=== PATIENT | female | born 1990 | race Caucasian/White ===

== ENCOUNTER 2019-11-22 23:13 | Inpatient (IN) | payer OTHER ==
[~2019-11-22] VITALS: Ht 165.1 cm; Wt 87.7 kg
[~2019-11-22 23:13] MED LIST: CEFD300C37 PO
[2019-11-22 23:15] VITALS: BP 131/70
[2019-11-22] MEDS ORDERED: OXYTOCIN 30U/ 0.9% NaCL 500ML 500 ML IV ONE (23:24)
[2019-11-22] MEDS ORDERED: D5%-LACTATED RINGERS 1,000 ML IV SCH (23:24)
[2019-11-22] MEDS ORDERED: FENTANYL PF 100 MCG/2ML IV PRN (23:30)
[2019-11-22] MEDS ORDERED: TERBUTALINE 1 MG/ML, 1ML SQ PRN (23:30)
[2019-11-22] MEDS ORDERED: TERBUTALINE 1 MG/ML, 1ML IVPush PRN (23:30)
[2019-11-22] MEDS ORDERED: FENTANYL PF 100 MCG/2ML IVPush PRN (23:30)
[2019-11-22] MEDS ORDERED: CALCIUM CARBONATE 500 MG TAB.CHEW PO PRN (23:30)
[2019-11-22] MEDS ORDERED: ONDANSETRON 2MG/ML, 2ML IVPush PRN (23:30)
[2019-11-22 23:44] LABS: BASOPHILS # (AUTO) 0.03 x10^3/uL (0-0.1); BASOPHILS % (AUTO) 0 % (0-1); EOSINOPHILS # (AUTO) 0.05 x10^3/uL (0-0.4); EOSINOPHILS % (AUTO) 0 % (1-7); LYMPHOCYTES # (AUTO) 1.59 x10^3/uL (1-3.4); LYMPHOCYTES % (AUTO) 15 % (22-44); MD NO; MEAN CORPUSCULAR HEMOGLOBIN 31.4 pg (27.0-34.8); MEAN CORPUSCULAR HGB CONC 34.1 g/dL (32.4-35.8); MEAN CORPUSCULAR VOLUME 92.1 fL (80-100); MONOCYTES # (AUTO) 0.72 x10^3/uL (0.2-0.8); MONOCYTES % (AUTO) 7 % (2-9); NEUTROPHILS % (AUTO) 78 % (42-75); PLATELET COUNT 154 x10^3/uL (130-400); RED BLOOD COUNT 4.15 x10^6/uL (3.82-5.3); RED CELL DISTRIBUTION WIDTH 13.9 % (9.6-15.2)
[2019-11-22] MEDS ORDERED: PLEASE ENTER HEIGHT AND WEIGHT MC SCH (23:45)
[2019-11-22] MEDS ORDERED: FENTANYL/BUPIV./NS/PF 250 ML EPIDCONT SCH (23:55)
[2019-11-22] MEDS ORDERED: NEWBORN KIT ONE (23:59)
[2019-11-23] MEDS ORDERED: EPHEDRINE 50 MG/ML, 1ML IVPush PRN
[2019-11-23] MEDS ORDERED: LACTATED RINGERS 1,000 ML IVBOLUS PRN
[2019-11-23] MEDS ORDERED: FENTANYL PF 500 MCG, BUPIVACAINE/PF 0.5%, 30ML 62.5 ML in SODIUM CHLORIDE 0.9% 177.5 ML EPIDCONT SCH (00:30)
[2019-11-23] MEDS: LACTATED RINGERS 1,000 ML IV SCH ×6 (00:33→23:55)
[2019-11-23] MEDS ORDERED: FENTANYL PF 100 MCG/2ML ONE (00:44)
[2019-11-23] MEDS ORDERED: BUPIVACAINE 0.25% ONE (00:44)
[2019-11-23] MEDS ORDERED: OXYTOCIN 30U/ 0.9% NaCL 500ML 500 ML IV PRN (02:42)
[2019-11-23] MEDS ORDERED: MISOPROSTOL 200 MCG TABLET ONE (10:09)
[2019-11-23] MEDS ORDERED: LIDOCAINE 1%, 20ML ONE (10:09)
[2019-11-23] MEDS ORDERED: IBUPROFEN 600 MG TABLET ONE (10:59)
[2019-11-23] MEDS ORDERED: MISOPROSTOL 200 MCG TABLET PR PRN (11:00)
[2019-11-23] MEDS ORDERED: ONDANSETRON 2MG/ML, 2ML IV PRN (11:00)
[2019-11-23] MEDS ORDERED: SIMETHICONE 80 MG CHEW TAB PO PRN (11:00)
[2019-11-23] MEDS ORDERED: CARBOPROST TROMETHAMINE 250 MCG/ML, 1ML IM PRN (11:00)
[2019-11-23] MEDS ORDERED: OXYcodone/APAP 5/325MG TABLET PO PRN ×2 (11:00)
[2019-11-23] MEDS ORDERED: METHYLERGONOVINE 0.2 MG/ML IM PRN (11:00)
[2019-11-23] MEDS ORDERED: IBUPROFEN 800 MG TABLET ONE (11:04)
[2019-11-23] MEDS: IBUPROFEN 800 MG TABLET PO PRN ×2 (11:07→19:12)
[2019-11-23] MEDS ORDERED: OXYTOCIN 30U/ 0.9% NaCL 500ML 500 ML ONE ×2 (11:55)
[2019-11-23] MEDS: OXYTOCIN 30U/ 0.9% NaCL 500ML 500 ML IV SCH ×2 (11:57→20:50)
[2019-11-23 14:45] VITALS: BP 118/69
[2019-11-23 17:11] VITALS: BP 114/68
[2019-11-23 18:48] LABS: BASOPHILS # (AUTO) 0.06 x10^3/uL (0-0.1); BASOPHILS % (AUTO) 0 % (0-1); EOSINOPHILS # (AUTO) 0.04 x10^3/uL (0-0.4); EOSINOPHILS % (AUTO) 0 % (1-7); LYMPHOCYTES # (AUTO) 1.14 x10^3/uL (1-3.4); LYMPHOCYTES % (AUTO) 9 % (22-44); MD NO; MEAN CORPUSCULAR HEMOGLOBIN 31.8 pg (27.0-34.8); MEAN CORPUSCULAR HGB CONC 34.5 g/dL (32.4-35.8); MEAN CORPUSCULAR VOLUME 92.2 fL (80-100); MEAN PLATELET VOLUME 10.1 fL (7.4-10.4); MONOCYTES # (AUTO) 0.77 x10^3/uL (0.2-0.8); MONOCYTES % (AUTO) 6 % (2-9); NEUTROPHILS # (AUTO) 10.89 x10^3/uL (1.8-6.8); NEUTROPHILS % (AUTO) 85 % (42-75); PLATELET COUNT 134 x10^3/uL (130-400); RED BLOOD COUNT 3.73 x10^6/uL (3.82-5.3)
[2019-11-23] MEDS: DOCUSATE 100 MG CAPSULE PO PRN (19:12)
[2019-11-23 19:30] VITALS: BP 122/82
[2019-11-23] MEDS ORDERED: ACETAMINOPHEN 325 MG TABLET PO PRN (20:00)
[2019-11-24] MEDS: ACETAMINOPHEN 325 MG TABLET PO PRN ×2 (00:02→08:40)
[2019-11-24 00:10] VITALS: BP 125/84
[2019-11-24] MEDS: IBUPROFEN 800 MG TABLET PO PRN (03:27)
[2019-11-24 03:30] VITALS: BP 109/67
[2019-11-24] MEDS ORDERED: IBUPROFEN 600 MG TABLET PO PRN (06:00)
[2019-11-24] MEDS: OXYTOCIN 30U/ 0.9% NaCL 500ML 500 ML IV SCH (06:50)
[2019-11-24] MEDS: LACTATED RINGERS 1,000 ML IV SCH (07:22)
[2019-11-24 08:00] VITALS: BP 110/70
[2019-11-24] MEDS: DOCUSATE 100 MG CAPSULE PO PRN (08:40)
[2019-11-24] MEDS ORDERED: PRENATAL VIT/IRON/FA 1 EACH TABLET PO SCH (09:00)
[2019-11-24] MEDS ORDERED: DOCU-131 PO (13:50)
[2019-11-24] MEDS ORDERED: IBUP-1223 PO (13:50)
[2019-11-24] MEDS ORDERED: MEASLES,MUMPS&RUBELLA VACC/PF 0.5 ML SQ-VACC ONE ×2 (13:53→14:30)
== END 2019-11-24 14:53 | disposition home or self-care (01) | DRG 807 ==
LOC: LDOP 23:13 → LDIP 23:27 → 2NW 11-23 14:25
PROVIDERS: ADMIT Obstetrics & Gynecology; ATTEND Obstetrics & Gynecology
PROC: 10E0XZZ Delivery of Products of Conception, External Approach (ICD-10-PCS; principal; 2019-11-23)
PROC: 0KQM0ZZ Repair Perineum Muscle, Open Approach (ICD-10-PCS; 2019-11-23)
PROC: 10907ZC Drainage of Amniotic Fluid, Therapeutic from Products of Conception, Via Natural or Artificial Opening (ICD-10-PCS; 2019-11-23)
DX: O70.1 Second degree perineal laceration during delivery (principal); Z37.0 Single live birth; Z3A.39 39 weeks gestation of pregnancy; Z88.5 Allergy status to narcotic agent; Z88.8 Allergy status to other drugs, medicaments and biological substances
CPT/HCPCS: 36415; S0020; 85025; 86592; 86850; 86900; G0378; J3010; J3490; J2590; J7050; J7120